=== PATIENT | female | born 1940 | race Asian ===

== ENCOUNTER 2020-06-18 10:22 | Inpatient (IN) | payer MEDICARE, OTHER ==
[~2020-06-18] VITALS: Ht 160 cm; Wt 52.4 kg
[~2020-06-18 10:22] MED LIST: ADULT LOW DOSE81 MG PO; ALPRAZOLAM1 M1 PO; AMBIEN 10 MG TA10 MG PO; ARICEPT 5 MG TAB5 MG PO; ATENOLOL 50 MG50 M1 PO; ATIVAN1 MG PO; BENZONATATE200 MG PO; CALTRATE PLUS1 EACH PO; CENTRUM SILVER1 EAC1 PO; CENTRUM SILVER1 EAC4 PO; DIOVAN 80 MG TA80 M1 PO; FLUOXETINE HCL10 M1 PO; KEPPRA250 MG PO; LIPITOR 20 MG T20 M1 PO; NITROSTAT0.3 MG SL; PLAVIX 75 MG TA75 M1 PO; RANEXA500 MG PO; SERTRALINE HCL50 MG PO; VICODIN ES 7.51 EACH PO; VICODIN ES TAB1 EACH PO; ZOCOR 10 MG TAB10 MG PO; [UNRECOGNIZED DRUG - OTHER] PO; [UNRECOGNIZED DRUG - OTHER] PO
[2020-06-18 10:41] VITALS: BP 175/86
[2020-06-18 11:19] LABS: ABSOLUTE LYMPHOCYTES 1.4 thou/uL (0.8-5.3); ABSOLUTE MONOCYTES 0.5 thou/uL (0.0-1.2); ABSOLUTE NEUTROPHILS 2.6 thou/uL (1.6-8.1); BASOPHILS 0.2 %; EOSINOPHILS 0.1 %; HEMATOCRIT 42.9 % (37.0-47.0); HEMOGLOBIN 14.6 gm/dL (12.0-15.0); LYMPHOCYTES 32.1 %; MCH 32.5 pg (26.0-34.0); MCV 95.7 fL (80.0-100.0); MONOCYTES 10.8 %; MPV 8.8 fl. (7.2-11.1); NUCLEATED RBCS 0 /100WBC; PLATELET COUNT* 193 thou/uL (150-400); POLYS 56.8 %; RBC 4.48 mil/uL (4.20-5.00); RDW-CV 12.8 % (10.5-14.5); WBC 4.5 thou/uL (4.0-11.0)
[2020-06-18 11:36] LABS: CALCIUM 8.7 mg/dL (8.5-10.1); CREATININE 0.8 mg/dL (0.6-1.3); POTASSIUM 4.2 mmol/L (3.5-5.1)
[2020-06-18 11:38] LABS: APTT 29.5 Seconds (25.0-31.3)
[2020-06-18 11:46] LABS: ALBUMIN 3.6 g/dL (3.4-5.0); TOTAL BILIRUBIN 0.4 mg/dL (<0.1-1.0); TOTAL PROTEIN 8.6 g/dL (6.4-8.2)
[2020-06-18 17:47] LABS: URINE BILIRUBIN NEGATIVE (Negative); URINE BLOOD TRACE (Negative); URINE CLARITY CLEAR; URINE COLOR YELLOW; URINE GLUCOSE-RANDOM 1+ (Negative); URINE KETONES 2+ (Negative); URINE LEUKOCYTES-REFLEX NEGATIVE (Negative); URINE NITRITE-REFLEX NEGATIVE (Negative); URINE PROTEIN 1+ (Negative); URINE UROBILINOGEN 0.2 E.U./dl (0.2-1.0)
[2020-06-18 17:58] VITALS: BP 150/78
[2020-06-18 21:41] VITALS: BP 168/83
--- NOTE | 2020-06-18 22:35 | NUR ---
[place] [id number]
[2020-06-19 01:30] VITALS: BP 140/63
[2020-06-19 03:37] LABS: HEMATOCRIT 38.5 % (37.0-47.0); MCH 31.2 pg (26.0-34.0); MCHC 32.3 g/dL (28.0-37.0); MCV 96.4 fL (80.0-100.0); RDW-CV 13.2 % (10.5-14.5); WBC 2.6 thou/uL (4.0-11.0)
[2020-06-19 03:46] LABS: CALCIUM 7.4 mg/dL (8.5-10.1); CREATININE 0.8 mg/dL (0.6-1.3); POTASSIUM 3.7 mmol/L (3.5-5.1)
[2020-06-19 03:54] LABS: HEMOGLOBIN 12.5 gm/dL (12.0-15.0)
[2020-06-19 03:56] LABS: ALBUMIN 2.7 g/dL (3.4-5.0); MAGNESIUM 1.5 mg/dL (1.8-2.4); TOTAL BILIRUBIN 0.3 mg/dL (<0.1-1.0); TOTAL PROTEIN 6.9 g/dL (6.4-8.2)
[2020-06-19 05:30] VITALS: BP 185/92
[2020-06-19 09:30] VITALS: BP 189/98
--- NOTE | 2020-06-19 16:34 | EKG ---
[place] [address] ELECTROCARDIOGRAM REPORT Name: SIXTO SMYTH Room: [place] [address] ADM IN .R.#: [id number] Admission: 06/18/20 Attend Phys: Jada Abreu, Discharge: Date of : 36 Date of Service: 06/18/20 1106 Report #: [id number] THIS REPORT FOR: //name// [facility] ED Test Date: 2020-06-18 Test Time: 11:06:02 Pat Name: SIXTO SMYTH Department: Room: [facility] Gender: F Healthcare Marketer: CCD : 1940 Requested By: Micah Kenney Order Number: [id number] MD: Akbar Justice Measurements Intervals [place] Rate: 72 P: 57 NE: 153 QRS: 35 QRSD: 85 T: 68 QT: 475 QTc: 520 Interpretive Statements Sinus rhythm Abnormal R-wave progression, early transition Abnormal T, consider ischemia, anterior leads Prolonged QT interval Compared to ECG 08/16/2015 14:01:33 T-wave abnormality now present Possible ischemia now present Prolonged QT interval now present Myocardial infarct finding no longer present Electronically Signed On 06-19-2020 16:34:17 GREY PERCHER by Akbar Justice [email or web address] <ELECTRONICALLY SIGNED> By: Akbar Justice MD, [facility] 06/19/20 1634 1106 1106 Akbar Justice MD, [facility] /EPI
[2020-06-19 21:20] VITALS: BP 189/98
[2020-06-19 22:00] VITALS: BP 175/80
[2020-06-20 05:01] VITALS: BP 171/71
--- NOTE | 2020-06-20 05:03 | NUR ---
RECIEVED PT FROM ED UPON ARRIVAL TO UNIT PT PLACE ON MINUTE CLERK SHOWS NSR , PT UP TO BSC GAIT STEADY PT ABLE TO TALK TO SON ON PT PERSONAL CELL PHONE. PT ALERT TO SELF ONLY , PT INPULSIVE , BEDALARM ON DISCUSSED PLAN OF CARE , BUT PT NEED REMINDERS. IV FLUID STARTED HS SNACK EATEN. PT RESTED WELL THROUHGOUT HOURLY ROUNDS WILL CONTINUE WITH CURRENT PLAN OF CARE AND WILL REPORT CHANGES.
[2020-06-20 05:17] LABS: ABSOLUTE LYMPHOCYTES 1.2 thou/uL (0.8-5.3); ABSOLUTE MONOCYTES 0.5 thou/uL (0.0-1.2); ABSOLUTE NEUTROPHILS 5.2 thou/uL (1.6-8.1); BASOPHILS 0.2 %; HEMATOCRIT 40.6 % (37.0-47.0); HEMOGLOBIN 13.6 gm/dL (12.0-15.0); LYMPHOCYTES 17.4 %; MCH 31.6 pg (26.0-34.0); MCHC 33.5 g/dL (28.0-37.0); MCV 94.5 fL (80.0-100.0); MONOCYTES 7.9 %; MPV 9.1 fl. (7.2-11.1); NUCLEATED RBCS 0 /100WBC; PLATELET COUNT* 212 thou/uL (150-400); POLYS 74.5 %; RDW-CV 12.9 % (10.5-14.5)
[2020-06-20 05:39] LABS: ALBUMIN 2.9 g/dL (3.4-5.0); CREATININE 0.6 mg/dL (0.6-1.3); POTASSIUM 3.2 mmol/L (3.5-5.1); TOTAL BILIRUBIN 0.4 mg/dL (<0.1-1.0); TOTAL PROTEIN 7.3 g/dL (6.4-8.2)
[2020-06-20 05:49] LABS: PREALBUMIN 15.3 mg/dL (18.0-35.7)
--- NOTE | 2020-06-20 07:26 | NUR ---
NIGHT RN REPORTS THAT PT TAKES GOWN OFF AND AND TELE CONSTANTLY AND TRIES TO PULL OUT IV AND GET OUT OF BED. IMMEADIATELY AFTER RECIEVING REPORT FROM NIGHT RN PT'S BED ALARM WENT OFF. WHEN I ENTERED PT'S ROOM SHE WAS STANDING AT THE SIDE OF THE BED WITH TELE OFF AND GOWN AND IV TUBING WRAPPED AROUND FEET. I WAS ABLE TO GET PT BACK TO BED BEFORE SHE TRIPPED AND FEEL AND SUSTAINED INJURY. INFORM PT THAT SHE NEEDS TO STAY IN BED AND USE CALL LIGHT. WILL ASK CLOUD SUBJECT MATTER EXPERT FOR SITTER AND PT IS IN ROOM CLOSE TO NURSING STATION.
[2020-06-20 08:45] VITALS: BP 158/80
[2020-06-20] MEDS ORDERED: DOXYCYCLINE 10100 MG PO (08:58)
[2020-06-20] MEDS ORDERED: PROTONIX40 M2 PO (08:58)
[2020-06-20] MEDS ORDERED: DEXAMETHASONE1 MG PO (08:58)
[2020-06-20 09:30] VITALS: BP 158/80
--- NOTE | 2020-06-20 10:12 | NUR ---
SPOKE WITH DR. BENAVIDEZ AND SON AND AGREED THE BEST CARE FOR THE PATIENT WOULD BE AT HOME PT HAS DEMENTIA, FREQUENTLY GETS OUT OF BED AND IS IMPULSIVE, ALSO HIGH RISK FOR FALL. PT IS COVID POSITIVE HOWEVER IS ON ROOM AIR WITH GOOD RESPIRATORY FUNCTION. SON AGREES TO STAY HOME WITH PATIENT AND STATES THAT HE HAS PPE, GLUCOMETER AT HOME AND KNOWS HOW TO USE THEM. SON STATES THAT HE IS CAPABLE OF CARE OF PATIENT AND CAN PREVENT INJURY FROM FALL. WILL DISCONTINUE IV AND TELE AND DISCHARGE TO HOME.
[2020-06-20 10:45] VITALS: BP 158/80
--- NOTE | 2020-06-20 11:19 | NUR ---
FOLLOW UP FINAL XRYS WITH DR BENAVIDEZ. OK FOR PT TO GO HOME.
--- NOTE | 2020-06-20 18:33 | NUR ---
PT. DISCHARGED TO HOME PRIOR TO O.T. EVAL. PLEASE ORDER FURTHER O.T. SERVICES IF NEEDED.
== END 2020-06-20 12:05 | disposition home or self-care (01) | DRG 177 ==
LOC: M.ERS 10:22 → M.TBA-ER 13:49 → M.ORTHSURG 13:49
PROVIDERS: Family Medicine; Internal Medicine; ADMIT Internal Medicine; ATTEND Internal Medicine
DX: U07.1 COVID-19 (principal); G92 Toxic encephalopathy; J12.89 Other viral pneumonia; J15.6 Pneumonia due to other Gram-negative bacteria; E87.2 Acidosis; F41.9 Anxiety disorder, unspecified; F32.9 Major depressive disorder, single episode, unspecified; E78.00 Pure hypercholesterolemia, unspecified; I10 Essential (primary) hypertension; F03.90 Unspecified dementia, unspecified severity, without behavioral disturbance, psychotic disturbance, mood disturbance, and anxiety; I25.10 Atherosclerotic heart disease of native coronary artery without angina pectoris; G40.909 Epilepsy, unspecified, not intractable, without status epilepticus; E78.5 Hyperlipidemia, unspecified; Z79.899 Other long term (current) drug therapy; Z79.82 Long term (current) use of aspirin; Z95.5 Presence of coronary angioplasty implant and graft; I25.2 Old myocardial infarction; Z28.21 Immunization not carried out because of patient refusal

== ENCOUNTER 2021-05-18 16:59 | Emergency (ER) | payer MEDICARE, OTHER ==
[~2021-05-18] VITALS: Ht 149.9 cm; Wt 53.1 kg
[~2021-05-18 16:59] MED LIST changes: +DEXAMETHASONE1 MG PO; +DOXYCYCLINE 10100 MG PO; +PROTONIX40 M2 PO
[2021-05-18 17:14] LABS: ABSOLUTE BASOPHILS 0.1 thou/uL (0.0-0.2); ABSOLUTE EOSINOPHILS 0.2 thou/uL (0.0-0.7); ABSOLUTE LYMPHOCYTES 3.3 thou/uL (0.8-5.3); ABSOLUTE MONOCYTES 0.6 thou/uL (0.0-1.2); ABSOLUTE NEUTROPHILS 2.5 thou/uL (1.6-8.1); BASOPHILS 0.9 %; EOSINOPHILS 3.4 %; HEMATOCRIT 34.8 % (37.0-47.0); HEMOGLOBIN 11.6 gm/dL (12.0-15.0); LYMPHOCYTES 49.2 %; MCHC 33.4 g/dL (28.0-37.0); MCV 95.8 fL (80.0-100.0); MONOCYTES 9.6 %; MPV 8.2 fl. (7.2-11.1); NUCLEATED RBCS 0 /100WBC; PLATELET COUNT* 195 thou/uL (150-400); POLYS 36.9 %; RBC 3.63 mil/uL (4.20-5.00); RDW-CV 13.1 % (10.5-14.5); WBC 6.7 thou/uL (4.0-11.0)
[2021-05-18 17:24] LABS: URINE BILIRUBIN NEGATIVE (Negative); URINE BLOOD NEGATIVE (Negative); URINE CLARITY CLEAR; URINE COLOR YELLOW; URINE GLUCOSE-RANDOM TRACE (Negative); URINE KETONES NEGATIVE (Negative); URINE LEUKOCYTES-REFLEX TRACE (Negative); URINE NITRITE-REFLEX NEGATIVE (Negative); URINE PROTEIN NEGATIVE (Negative); URINE UROBILINOGEN 0.2 E.U./dl (0.2-1.0)
[2021-05-18 17:25] LABS: CALCIUM 8.5 mg/dL (8.5-10.1); CREATININE 0.8 mg/dL (0.6-1.3); POTASSIUM 3.9 mmol/L (3.5-5.1)
[2021-05-18 17:32] LABS: BACTERIA-REFLEX None Seen /HPF (None Seen); CASTS None Seen /LPF (None Seen); CRYSTALS None Seen /LPF (None Seen); SQUAMOUS 0-3 Few /LPF (0-3); URINE RBC None Seen /HPF (0-2); URINE WBC-REFLEX 0-5 Rare /HPF (0-5)
[2021-05-18 17:36] LABS: ALBUMIN 3.8 g/dL (3.4-5.0); TOTAL BILIRUBIN 0.3 mg/dL (<0.1-1.0); TOTAL PROTEIN 7.1 g/dL (6.4-8.2)
[2021-05-18] MEDS ORDERED: ROSUVASTATIN CA20 MG PO (17:40)
[2021-05-18] MEDS ORDERED: SEROQUEL200 MG PO (17:43)
[2021-05-18] MEDS ORDERED: VITAMIN D250 MCG PO (17:45)
[2021-05-18] MEDS ORDERED: IMDUR 30 MG TAB30 M1 PO (17:45)
[2021-05-18] MEDS ORDERED: MEMANTINE HCL10 MG PO (17:46)
[2021-05-18] MEDS ORDERED: DESYREL150 MG PO (17:46)
[2021-05-18] MEDS ORDERED: ZETIA10 MG PO (17:47)
[2021-05-18] MEDS ORDERED: JANUMET 50-1,01 EACH PO (17:47)
[2021-05-18] MEDS ORDERED: ESCITALOPRA5 MG/5 ML PO (17:48)
[2021-05-18] MEDS ORDERED: AMARYL2 M1 PO (17:48)
[2021-05-18] MEDS ORDERED: COZAAR 25 MG TA25 M2 PO (17:49)
[2021-05-18 18:23] VITALS: BP 151/70
--- NOTE | 2021-05-19 12:51 | EKG ---
[place] [address] ELECTROCARDIOGRAM REPORT Name: SIXTO SMYTH Room: [facility]#: [id number] Admission: 05/18/21 Attend Phys: Discharge: 05/18/21 Date of : 36 Date of Service: 05/18/21 1700 Report #: [id number] THIS REPORT FOR: //name// [facility] ED Test Date: 2021-05-18 Test Time: 17:00:41 Pat Name: SIXTO SMYTH Department: Room: Gender: Radiocommunications Technician: : 1940 Requested By: Micah Kenney Order Number: [id number] MD: Delon Barrera Measurements Intervals [place] Rate: 68 P: 68 CO: 180 QRS: 38 QRSD: 96 T: 48 QT: 610 QTc: 650 Interpretive Statements Sinus rhythm Inferior infarct, old Abnormal R-wave progression, early transition Borderline T abnormalities, anterior leads Prolonged QT interval Compared to ECG 06/18/2020 11:06:02 Possible ischemia no longer present T-wave abnormality still present Electronically Signed On 05-19-2021 12:51:17 CDT by Delon Barrera [email or web address] <ELECTRONICALLY SIGNED> By: Delon Barrera MD, FACC 05/19/21 1251 170 170 Delon Barrera MD, FACC /EPI
== END 2021-05-18 18:25 | disposition home or self-care (01) ==
LOC: M.ERS 16:59
PROVIDERS: Family Medicine
DX: R53.1 Weakness (principal); I25.2 Old myocardial infarction; E78.00 Pure hypercholesterolemia, unspecified; I10 Essential (primary) hypertension; Z79.82 Long term (current) use of aspirin; Z79.899 Other long term (current) drug therapy